=== PATIENT | male | born 1995 | race Caucasian/White ===

== ENCOUNTER 2019-06-08 18:15 | Emergency (ER) | payer OTHER ==
[~2019-06-08] VITALS: Ht 180.3 cm; Wt 79.4 kg
[2019-06-08 18:31] VITALS: BP_SYST 164
--- NOTE | 2019-06-08 20:30 | NUR ---
Patient to ER bed H1 to gown for evaluation. Side rails up
--- NOTE | 2019-06-08 20:35 | NUR ---
Pt brought by self, A&Ox4, pt c/o anxiety, SOB and chest wall pain since today , skin pink and warm, cap refill <3, respirations even and unlabored.
--- NOTE | 2019-06-08 20:45 | NUR ---
Dr Bowers at bedside examining patient
[2019-06-08 21:35] VITALS: BP_SYST 116
--- NOTE | 2019-06-08 21:37 | NUR ---
Patient given written and verbal discharge instructions and verbalizes understanding. ER MD discussed with patient the results and treatment provided. Patient in stable condition. ID arm band removed. No Rx given. Patient educated on pain management and to follow up with PMD. Pain Scale 0/10 . Opportunity for questions provided and answered. Medication side effect fact sheet provided.
== END 2019-06-08 21:35 | disposition home or self-care (01) ==
LOC: SED 18:15
DX: F41.9 Anxiety disorder, unspecified (principal)
CPT/HCPCS: 99281

== ENCOUNTER 2019-07-11 17:37 | Emergency (ER) | payer MEDICAID, OTHER ==
[~2019-07-11] VITALS: Ht 172.7 cm; Wt 59.0 kg
[2019-07-11] MEDS ORDERED: NACL 0.9% 1,000 ML IV ONE ×2 (17:40→19:30)
[2019-07-11 17:43] VITALS: BP_SYST 154
--- NOTE | 2019-07-11 17:43 | NUR ---
Patient to ER bed 7 to gown for evaluation. Side rails up. Report given to MERRILL Newell.
[2019-07-11] MEDS ORDERED: FOLIC ACID 1 MG, THIAMINE HCL 100 MG, MAGNESIUM SULFATE 1 GM, MVI 10 ML in NACL 0.9% 1,... IV ONE (17:45)
--- NOTE | 2019-07-11 17:45 | NUR ---
Patient had EKG performed by MERRILL Santiago. Patient tearful and having increased anxiety, patient given reassurance from myself and MD Valle. Will continue to follow up regarding orders.
--- NOTE | 2019-07-11 17:52 | NUR ---
ER at bedside examining patient.
--- NOTE | 2019-07-11 18:00 | NUR ---
Patient arrived via POV, AAOX4, and walking with hunched gait. Patient states he is feeling SOB and feeling like his heart is racing. Patient states he is a binge drinker and drank several glasses of wine and whiskey, panic attack began. Patient states his anxiety has never been as bad as it is now. Patient is having tachypnea and tachycardia. Patient is tearful. Will continue to follow up and monitor.
[2019-07-11] MEDS ORDERED: THIAMINE HCL 100 MG/ML VIAL ONE (18:11)
[2019-07-11] MEDS ORDERED: MVI 10 ML VIAL IV ONE (18:11)
[2019-07-11] MEDS ORDERED: MAGNESIUM SULFATE 1 GM/2 ML VIAL ONE (18:11)
[2019-07-11] MEDS ORDERED: FOLIC ACID 5 MG/ML VIAL IV ONE (18:11)
[2019-07-11] MEDS ORDERED: LORazepam 2 MG/ML VIAL IVP ONE (18:15)
--- NOTE | 2019-07-11 18:45 | NUR ---
Patient resting comfortably. Needs are met at this time. Patient remains on library monitor. Will continue to follow up.
[2019-07-11 18:51] LABS: BASOPHILS % (AUTO) 0.2 % (0.0-2.0); EOSINOPHILS % (AUTO) 0.2 % (0.0-4.0); HEMOGLOBIN 13.4 g/dL (14.0-18.0); LYMPHOCYTES # (AUTO) 1.1 K/uL (1.0-5.5); LYMPHOCYTES % (AUTO) 18.7 % (20.5-51.5); MEAN CORPUSCULAR HEMOGLOBIN 30 pg (27-31); MEAN CORPUSCULAR HGB CONC 34 % (32-36); MEAN CORPUSCULAR VOLUME 88 fL (79.0-98.0); MONOCYTES # (AUTO) 0.4 K/uL (0.0-1.0); MONOCYTES % (AUTO) 6.6 % (1.7-9.3); NEUTROPHILS # (AUTO) 4.4 K/uL (1.8-7.7); NEUTROPHILS % (AUTO) 74.3 % (40.0-70.0); PLATELET COUNT (AUTO) 255 K/uL (130-430); RED BLOOD CELL COUNT(AUTO) 4.53 MIL/uL (4.2-6.2); RED CELL DISTRIBUTION WIDTH 14.1 % (9.0-15.0); WHITE BLOOD COUNT (AUTO) 5.9 K/uL (4.8-10.8)
[2019-07-11 18:53] LABS: BILIRUBIN,URINE NEGATIVE (NEGATIVE); BLOOD, URINE NEGATIVE (NEGATIVE); CLARITY/URINE CLEAR (CLEAR); COLOR,URINE YELLOW (YELLOW); GLUCOSE,URINE NEGATIVE (NEGATIVE); KETONES,URINE NEGATIVE (NEGATIVE); LEUKOCYTE ESTERASE ,URINE NEGATIVE (NEGATIVE); NITRITE, URINE NEGATIVE (NEGATIVE); PH,URINE 7.5 (5.0-8.0); PROTEIN URINE NEGATIVE (NEGATIVE); UROBILINOGEN,URINE 0.2 (0.2-1.0)
[2019-07-11 19:04] LABS: PROTHROMBIN TIME 10.4 SECS (9.5-12.5)
[2019-07-11 19:05] LABS: ANION GAP 10 (5-15); CALCIUM 8.7 mg/dL (8.4-11.0); CHLORIDE 107 mmol/L (98-107); CREATININE 0.96 mg/dL (0.55-1.30); GLUCOSE 133 mg/dL (70-99); SODIUM SERUM 143 mmol/L (136-145); UREA NITROGEN, BLOOD 9 mg/dL (8-21)
[2019-07-11 19:07] LABS: BARBITURATE, URINE NEGATIVE (NEG <=200); BENZODIAZEPINE, URINE NEGATIVE (NEG <=150); CANNABINOID, URINE NEGATIVE (NEG <=50); COCAINE, URINE NEGATIVE (NEG <=150); METHAMPHETAMINES SCREEN,URINE NEGATIVE (NEG <=500); OPIATE, URINE NEGATIVE (NEG <=100); PHENCYCLIDINE SCREEN,URINE NEGATIVE (NEG <=25); UR TRICYCLIC ANTIDEPRESSANTS NEGATIVE (NEG <=300); URINE AMPHETAMINE NEGATIVE (NEG <=500); URINE METHADONE NEGATIVE (NEG <=200); URINE OXYCODONE SCREEN NEGATIVE (NEG <=100); URINE PROPOXYPHENE SCREEN NEGATIVE (NEG <=300)
[2019-07-11 19:10] LABS: GFR AFRICAN AMERICAN 124 mL/min (>90)
[2019-07-11 19:12] LABS: ALANINE AMINOTRANSFERASE 25 U/L (12-78); AMYLASE 35 U/L (0-100); ASPARTATE AMINOTRANSFERASE 20 U/L (10-37); LIPASE 84 U/L (73-393); TOTAL BILIRUBIN 0.7 mg/dL (0.0-1.0)
[2019-07-11 19:15] LABS: ALCOHOL, BLOOD < 3 mg/dL (<10)
--- NOTE | 2019-07-11 19:32 | NUR ---
Patient report given to MERRILL Pandey. Endorsed additional 1L bolus that was ordered. Patient calm and cooperative. Will continue to follow up and monitor.
--- NOTE | 2019-07-11 21:13 | NUR ---
Pt resting in ED bed comfortably. No distress. Tolerating IV fluids well
[2019-07-11] MEDS ORDERED: POTASSIUM CHLORIDE 20 MEQ TAB.PRT.SR PO ONE (21:15)
[2019-07-11 22:40] VITALS: BP_SYST 116
--- NOTE | 2019-07-11 22:40 | NUR ---
Patient given written and verbal discharge instructions and verbalizes understanding. ER MD discussed with patient the results and treatment provided. Patient in stable condition. ID arm band removed. IV catheter removed intact and dressing applied, no active bleeding. Rx of Ativan given. Patient educated on pain management and to follow up with PMD. Pain Scale 0/10. Opportunity for questions provided and answered. Medication side effect fact sheet provided.
== END 2019-07-11 22:40 | disposition home or self-care (01) ==
LOC: SED 17:37
DX: F10.129 Alcohol abuse with intoxication, unspecified (principal); F41.9 Anxiety disorder, unspecified; R00.0 Tachycardia, unspecified; Y90.0 Blood alcohol level of less than 20 mg/100 ml
CPT/HCPCS: 36415; 71045; 80053; 80307; 81003; 82150; 82550; 83605; 83690; 83880; 84484; 85025; 85610; 85730; 87040; 93005; 96365; 96366; 96375; 99285; G0481; G0482; J2060; J3411; J3475; J3490; J7030